=== PATIENT | male | born 1975 ===

== ENCOUNTER 2020-03-03 08:36 | Day surgery (SDC) | payer OTHER ==
[2020-02-26 17:01] LABS: BASOPHILS % (AUTO) 0.5 % (0-1); EOSINOPHILS # (AUTO) 0.1 X10'3 (0-0.9); EOSINOPHILS % (AUTO) 1.5 % (0-6); LYMPHOCYTES # (AUTO) 2.9 X10'3 (1.1-4.8); LYMPHOCYTES % (AUTO) 33.5 % (21-51); MEAN CORPUSCULAR HEMOGLOBIN 30.2 PG (27.0-31.0); MEAN CORPUSCULAR HGB CONC 34.1 g/dL (33.0-36.5); MEAN CORPUSCULAR VOLUME 88.4 FL (78-98); MEAN PLATELET VOLUME 6.9 FL (7.4-10.4); MONOCYTES # (AUTO) 0.5 X10'3 (0-0.9); NEUTROPHILS % (AUTO) 58.5 % (42-75); PRE OP HEMATOCRIT 44.2 % (42.0-52.0); PRE OP HEMOGLOBIN 15.1 g/dL (14.0-17.9); PRE OP PLATELET COUNT 302 X10'3 (140-440); RED CELL DISTRIBUTION WIDTH 13.3 % (11.5-14.5)
[2020-02-26 17:15] LABS: ALBUMIN/GLOBULIN RATIO 1.3 (1.1-1.5); ALKALINE PHOSPHATASE 126 IU/L (46-116); BLOOD UREA NITROGEN 14 MG/DL (7-18); BUN/CREATININE RATIO 14.1 (5.4-32.0); CALCIUM 9.2 MG/DL (8.5-10.1); CHLORIDE 108 MMOL/L (99-107); CREATININE 0.99 MG/DL (0.60-1.10); PRE OP ALT 28 U/L (30-65); PRE OP ANION GAP 8 (8-16); PRE OP AST 15 U/L (10-37); PRE OP BILIRUB, TOTAL 0.5 MG/DL (0.0-1.0); PRE OP GLUCOSE 128 MG/DL (70-104); PRE OP POTASSIUM 3.7 MMOL/L (3.4-5.1); PRE OP SODIUM 142 MMOL/L (135-145); TOTAL CARBON DIOXIDE 26.3 MMOL/L (24-32); eGFR 83 ML/MIN
[2020-03-03] VITALS (10 sets, daily range): BP systolic 110–141; BP diastolic 63–74
[~2020-03-03] VITALS: Ht 182.9 cm; Wt 87.0 kg
[~2020-03-03 08:36] MED LIST: BUPIVAcaine/PF 2.5 mg/ml (0.25%) 30ml vial ONE; LIDOcaine 1% 30ml preserv. free vial ONE; NO HOME MEDS; ceFAZolin 2gm in dextrose, iso 50 ML IV ONE; famotidine 20mg tablet PO ONE; ringers solution, lacted 1,000 ML IV SCH
[2020-03-03] MEDS ORDERED: morphine 2 MG/ML inj. syringe IV PRN (10:00)
[2020-03-03] MEDS ORDERED: meperidine/PF 25mg/ml syringe IV PRN ×3 (10:00)
[2020-03-03] MEDS ORDERED: ondansetron/PF 4mg/2ml inj IV PRN (10:00)
[2020-03-03] MEDS ORDERED: proCHLORperazine 10 MG/2 ml inj IV PRN (10:00)
[2020-03-03] MEDS ORDERED: morphine 4 MG/ML inj SYRINge IV PRN (10:00)
[2020-03-03] MEDS ORDERED: ringers solution, lacted 1,000 ML IV SCH (10:00)
[2020-03-03] MEDS ORDERED: sevoflurane 250ml liquid IH ONE (10:58)
[2020-03-03] MEDS ORDERED: neostigmine methylsulfate 1 MG/ML 10ml vial ONE (10:58)
[2020-03-03] MEDS ORDERED: glycopyrrolate 0.2mg/ml inj ONE (10:58)
[2020-03-03] MEDS ORDERED: fentaNYL/PF 50MCG/1 ML 2ML syringe ONE (11:02)
[2020-03-03] MEDS ORDERED: midazolam 2 mg/2 ml injection ONE (11:02)
[2020-03-03] MEDS ORDERED: meperidine/PF 25mg/ml syringe ONE (11:02)
[2020-03-03] MEDS ORDERED: LIDOcaine 1%/PF 5ML 10 MG/ML VIAL ONE ×2 (11:03→11:10)
[2020-03-03] MEDS ORDERED: ondansetron/PF 4mg/2ml inj ONE (11:10)
[2020-03-03] MEDS ORDERED: dexamethasone sod phosphate 4mg/ml inj. ONE (11:10)
[2020-03-03] MEDS ORDERED: propofol inj 20 ML IV ONE (11:10)
[2020-03-03] MEDS ORDERED: rocuronium 10mg/ml inj IV ONE (11:10)
[2020-03-03] MEDS ORDERED: acetaminophen 1,000mg/100ml IV 100 ML IV ONE (11:34)
[2020-03-03] MEDS ORDERED: HYDROcodone/acetaminophen 10/325mg tab PO PRN (12:40)
[2020-03-03] MEDS ORDERED: HYDROcodone/acetaminophen 5mg/325mg tablet PO PRN (12:40)
--- NOTE | 2020-03-03 12:40 | NUR ---
Received from OR via BED , accompanied by Anesthesiologist DR REIS and report given by Anesthesiolgist. PATIENT WAKING UP, DENIES PAIN, V/S WNL, NEUROVASCULAR CHECKS INTACT, 20G PIV RUE, SCD ON, BANDAIDS TO LAP SIGHTS OF ABDOMEN C
--- NOTE | 2020-03-03 14:00 | NUR ---
PATIENT A&OX4, DENIES PAIN, V/S WNL, NEUROVASCULAR CHECKS INTACT, 20G PIV RUE D/C, SCD OFF, BANDAIDS TO LAP SIGHTS OF ABDOMEN I HAVE REVIEWED D/C INSTRUCTIONS WITH PATIENT AND FAMILY HAVE VERBALIZED UNDERSTANDING.PATIENT GIVEN SCRIPT FOR PAIN MEDS AND WAS D/C HOME WITH ALL BELONGINGS AND FAMILY GAVE TRANSPORT HOME.
== END 2020-03-03 14:00 | disposition home or self-care (01) ==
LOC: PAS 08:36
PROVIDERS: ATTEND Surgery
DX: K40.20 Bilateral inguinal hernia, without obstruction or gangrene, not specified as recurrent (principal); Z79.899 Other long term (current) drug therapy; Z20.822 Contact with and (suspected) exposure to COVID-19; Z98.890 Other specified postprocedural states; Z82.49 Family history of ischemic heart disease and other diseases of the circulatory system; Z80.0 Family history of malignant neoplasm of digestive organs
CPT/HCPCS: 36415; 49650; 80053; 82948; 85025; 87635; 93005; C1781; J0131; J1100; J2001; J2175; J2250; J2405; J2704; J2710; J3010; J3490; S2900; A4215; A4618; J7120